=== PATIENT | male | born 1935 | race Caucasian/White ===

== ENCOUNTER → 2017-02-05 | Outpatient (REF) | payer MEDICARE ==
[2017-02-05 11:58] LABS: MEAN CORPUSCULAR HGB CONC 33.5 g/dl (32.0-36.5); MEAN CORPUSCULAR VOLUME 98.3 fl (80.0-96.0); RED CELL DISTRIBUTION WIDTH 14.4 % (11.5-14.5); WHITE BLOOD COUNT 5.9 K/mm3 (4.0-10.0)
[2017-02-05 12:39] LABS: ALBUMIN 3.6 GM/DL (3.2-5.2); ALBUMIN/GLOBULIN RATIO 1.38 (1.00-1.93); BILIRUBIN,TOTAL 0.6 MG/DL (0.2-1.0); CALCIUM LEVEL 8.8 MG/DL (8.8-10.2); CREATININE FOR GFR 1.23 MG/DL (0.70-1.30); GLOMERULAR FILTRATION RATE 59.8 (>35); POTASSIUM SERUM 4.3 MEQ/L (3.5-5.1); TOTAL PROTEIN 6.2 GM/DL (6.4-8.2)
== END ==
LOC: M SFHCCLAY 08:00
PROVIDERS: ATTEND Family Medicine
DX: I10 Essential (primary) hypertension (principal); Z95.5 Presence of coronary angioplasty implant and graft; I25.10 Atherosclerotic heart disease of native coronary artery without angina pectoris; E78.00 Pure hypercholesterolemia, unspecified

== ENCOUNTER → 2017-03-04 | Outpatient (CLI) | payer MEDICARE ==
--- NOTE | 2017-03-04 16:17 | REP ---
Right hip: Two views. History: Right hip pain. Findings: AP and frog-leg views of the right hip demonstrate osteoarthritic spurring and the superior joint space narrowing of the right hip articulation. There is also some tendon insertion site spurring on the greater trochanter. No erosive changes seen. Bones joints and soft tissues are otherwise radiographically unremarkable. Impression: Mild to moderate right hip osteoarthritis. No acute bony abnormality.
== END ==
LOC: M CLY 14:43
PROVIDERS: ATTEND Family Medicine
DX: M16.11 Unilateral primary osteoarthritis, right hip (principal)
CPT/HCPCS: 73502; G0463

== ENCOUNTER → 2018-02-08 | Outpatient (REF) | payer MEDICARE ==
[2018-02-08 11:23] LABS: HEMATOCRIT 42.4 % (42.0-52.0); HEMOGLOBIN 14.4 g/dl (13.5-17.5); MEAN CORPUSCULAR HEMOGLOBIN 32.6 pg (27.0-33.0); MEAN CORPUSCULAR VOLUME 95.9 fl (80.0-96.0); PLATELET COUNT, AUTOMATED 243 10^3/uL (150-450); RED BLOOD COUNT 4.42 10^6/uL (4.30-6.10); RED CELL DISTRIBUTION WIDTH 14.4 % (11.5-14.5); WHITE BLOOD COUNT 7.6 10^3/uL (4.0-10.0)
[2018-02-08 11:56] LABS: VITAMIN B12 LEVEL 251 PG/ML (247-911)
[2018-02-08 12:12] LABS: ALBUMIN 3.8 GM/DL (3.2-5.2); ALBUMIN/GLOBULIN RATIO 1.46 (1.00-1.93); ALKALINE PHOSPHATASE 68 U/L (45-117); ALT/SGPT 27 U/L (12-78); ANION GAP 5 MEQ/L (8-16); AST/SGOT 17 U/L (7-37); BILIRUBIN,TOTAL 0.6 MG/DL (0.2-1.0); BLOOD UREA NITROGEN 20 MG/DL (7-18); CALCIUM LEVEL 8.6 MG/DL (8.8-10.2); CARBON DIOXIDE LEVEL 28 MEQ/L (21-32); CHLORIDE LEVEL 111 MEQ/L (98-107); CHOLESTEROL LEVEL 124 MG/DL (<200); CHOLESTEROL RISK RATIO 2.339 (<5); CREATININE FOR GFR 1.29 MG/DL (0.70-1.30); GLOMERULAR FILTRATION RATE 56.5 (>35); GLUCOSE, FASTING 102 MG/DL (70-100); HDL CHOLESTEROL 53 MG/DL (>40); IRON (FE) 90 UG/DL (65-175); LDL CHOLESTEROL 58.2 MG/DL (<100); NON-HDL-C 71 MG/DL; POTASSIUM SERUM 4.8 MEQ/L (3.5-5.1); SODIUM LEVEL 144 MEQ/L (136-145); TOTAL PROTEIN 6.4 GM/DL (6.4-8.2); TRIGLYCERIDES LEVEL 64 MG/DL (<150)
== END ==
LOC: M SFHCCLAY 08:42
DX: D64.9 Anemia, unspecified (principal); I10 Essential (primary) hypertension; Z95.5 Presence of coronary angioplasty implant and graft; M15.9 Polyosteoarthritis, unspecified
CPT/HCPCS: 82746

== ENCOUNTER → 2018-06-02 | Outpatient (REF) | payer MEDICARE | LOC: M SFHCCLAY 08:27 | DX: I10 Essential (primary) hypertension (principal); Z53.8 Procedure and treatment not carried out for other reasons ==

== ENCOUNTER → 2019-01-11 | Outpatient (REF) | payer MEDICARE ==
[~2019-01-11] MED LIST: AMLO2.5T3 PO; ASPI81TA26 PO; Acetaminophen Tab PO; PRAV40TA2 PO; RANI150T PO; VITA1TAB23 PO
[2019-01-11 16:55] LABS: HEMATOCRIT 43.7 % (42.0-52.0); HEMOGLOBIN 14.3 g/dl (13.5-17.5); MEAN CORPUSCULAR HEMOGLOBIN 32.1 pg (27.0-33.0); MEAN CORPUSCULAR HGB CONC 32.7 g/dl (32.0-36.5); MEAN CORPUSCULAR VOLUME 98.2 fl (80.0-96.0); PLATELET COUNT, AUTOMATED 245 10^3/uL (150-450); RED BLOOD COUNT 4.45 10^6/uL (4.30-6.10); WHITE BLOOD COUNT 6.7 10^3/uL (4.0-10.0)
[2019-01-11 17:03] LABS: ALT/SGPT 28 U/L (12-78); BILIRUBIN,TOTAL 0.5 MG/DL (0.2-1.0); BLOOD UREA NITROGEN 18 MG/DL (7-18); CALCIUM LEVEL 9.1 MG/DL (8.8-10.2); CARBON DIOXIDE LEVEL 29 MEQ/L (21-32); CHLORIDE LEVEL 109 MEQ/L (98-107); CREATININE FOR GFR 1.17 MG/DL (0.70-1.30); GLOMERULAR FILTRATION RATE > 60.0 (>35); GLUCOSE, FASTING 86 MG/DL (70-100); POTASSIUM SERUM 4.8 MEQ/L (3.5-5.1); SODIUM LEVEL 142 MEQ/L (136-145); TOTAL PROTEIN 6.5 GM/DL (6.4-8.2); VITAMIN B12 LEVEL 320 PG/ML (247-911)
== END ==
LOC: M SFHCCLAY 09:14
PROVIDERS: ATTEND Family Medicine
DX: Z00.00 Encounter for general adult medical examination without abnormal findings (principal); R41.3 Other amnesia; I25.10 Atherosclerotic heart disease of native coronary artery without angina pectoris

== ENCOUNTER → 2019-08-09 | Outpatient (REF) | payer MEDICARE ==
[2019-08-09 12:28] LABS: ALBUMIN 3.7 GM/DL (3.2-5.2); BILIRUBIN,DIRECT 0.2 MG/DL (0.0-0.2); BILIRUBIN,TOTAL 0.6 MG/DL (0.2-1.0); CALCIUM LEVEL 9.2 MG/DL (8.8-10.2); CREATININE FOR GFR 1.4 MG/DL (0.70-1.30); GLOMERULAR FILTRATION RATE 51.3 (>35); POTASSIUM SERUM 4.3 MEQ/L (3.5-5.1); TOTAL PROTEIN 6.9 GM/DL (6.4-8.2)
== END ==
LOC: M LABDRAWC 11:40
PROVIDERS: ATTEND Physician Assistant
DX: E78.00 Pure hypercholesterolemia, unspecified (principal); I10 Essential (primary) hypertension

== ENCOUNTER → 2019-10-13 | Outpatient (REF) | payer MEDICARE ==
[2019-10-13 12:34] LABS: APPEARANCE, URINE CLEAR (CLEAR); BACTERIA, URINE AUTO NEGATIVE (NEGATIVE); BILIRUBIN, URINE AUTO NEGATIVE (NEGATIVE); BLOOD, URINE BLOOD NEGATIVE (NEGATIVE); COLOR, URINE YELLOW (YELLOW); GLUCOSE, URINE (UA) AUTO NEGATIVE (NEGATIVE); HEMATOCRIT 44.2 % (42.0-52.0); HEMOGLOBIN 14.6 g/dl (13.5-17.5); KETONE, URINE AUTO NEGATIVE (NEGATIVE); LEUKOCYTE ESTERASE, URINE AUTO NEGATIVE (NEGATIVE); MEAN CORPUSCULAR HEMOGLOBIN 32.2 pg (27.0-33.0); MEAN CORPUSCULAR VOLUME 97.6 fl (80.0-96.0); NITRITE, URINE AUTO NEGATIVE (NEGATIVE); PLATELET COUNT, AUTOMATED 235 10^3/uL (150-450); PROTEIN, URINE AUTO NEGATIVE (NEGATIVE); RBC, URINE AUTO 1 /HPF (0-3); RED BLOOD COUNT 4.53 10^6/uL (4.30-6.10); SPECIFIC GRAVITY URINE AUTO 1.017 (1.002-1.035); SQUAMOUS EPITHELIAL CELL UR AU 0 /HPF (0-6); UROBILINOGEN, URINE AUTO 0.2 mg/dL (0.0-2.0); WBC, URINE AUTO 0 /HPF (0-3); WHITE BLOOD COUNT 7.4 10^3/uL (4.0-10.0)
[2019-10-13 12:52] LABS: ALBUMIN 3.8 GM/DL (3.2-5.2); ALT/SGPT 27 U/L (12-78); BILIRUBIN,TOTAL 0.7 MG/DL (0.2-1.0); BLOOD UREA NITROGEN 21 MG/DL (7-18); CALCIUM LEVEL 8.8 MG/DL (8.8-10.2); CARBON DIOXIDE LEVEL 28 MEQ/L (21-32); CHLORIDE LEVEL 107 MEQ/L (98-107); CHOLESTEROL LEVEL 134 MG/DL (<200); CREATININE FOR GFR 1.22 MG/DL (0.70-1.30); GLOMERULAR FILTRATION RATE > 60.0 (>35); GLUCOSE, FASTING 85 MG/DL (70-100); HDL CHOLESTEROL 50 MG/DL (>40); LDL CHOLESTEROL 67 MG/DL (<100); NON-HDL-C 84 MG/DL; POTASSIUM SERUM 4.8 MEQ/L (3.5-5.1); SODIUM LEVEL 142 MEQ/L (136-145); TOTAL PROTEIN 6.5 GM/DL (6.4-8.2); TRIGLYCERIDES LEVEL 86 MG/DL (<150)
== END ==
LOC: M SFHCCLAY 08:35
PROVIDERS: ATTEND Family Medicine
DX: Z12.5 Encounter for screening for malignant neoplasm of prostate (principal); I25.10 Atherosclerotic heart disease of native coronary artery without angina pectoris; Z95.5 Presence of coronary angioplasty implant and graft; R10.32 Left lower quadrant pain; R35.1 Nocturia
CPT/HCPCS: 80053; 80061; 81001; 85027; G0103

== ENCOUNTER → 2019-10-25 | Outpatient (CLI) | payer MEDICARE ==
[~2019-10-25] MED LIST changes: +GASTROGRAFIN SOLUTION 30ML (Q9963) As Ordered ONE; +ISOVUE-370 76% 100ML VIAL (Q9967) As Ordered ONE
--- NOTE | 2019-10-25 15:34 | REP ---
Clinical: Left lower quadrant pain. Technique: Axial contrast enhanced images from the lung bases to the pubic symphysis using oral (per protocol) and 100 ml Isovue 370 intravenous contrast material with coronal and sagittal re-formations. Delayed images of the abdomen obtained. Findings: Lung bases are clear. Liver, spleen, pancreas, gallbladder, bilateral adrenal glands and kidneys are essentially normal. Symmetric cortical age-related atrophic renal changes and 2 cm simple right renal cyst identified. The enteric system is without obstruction or acute inflammatory process. Normal terminal ileum and appendix identified in the right lower quadrant. Scattered sigmoid diverticula noted without acute diverticulitis. Pelvis demonstrates normal bladder. The prostate gland is heterogeneous and enlarged measuring approximately 4.3 cm transverse diameter. No ascites. No free air. No adenopathy. Abdominal aorta without aneurysm or dissection. Musculoskeletal structures demonstrate degenerative changes without acute osseous abnormality. Impression: 1. Age-related renal changes and 2 cm simple right renal cyst. 2. Scattered sigmoid diverticula without acute diverticulitis. 3. Prostatomegaly. 4. No ascites, focal inflammatory stranding, or adenopathy. Electronically Signed by Jonathan Hagan MD 10/25/2019 03:25 P
== END ==
LOC: M RAD 13:21
PROVIDERS: ATTEND Family Medicine
DX: R10.32 Left lower quadrant pain (principal)
CPT/HCPCS: 74177; Q9963; Q9967

== ENCOUNTER → 2019-11-02 | Outpatient (REF) | payer MEDICARE ==
[~2019-11-02] MED LIST changes: -GASTROGRAFIN SOLUTION 30ML (Q9963) As Ordered ONE; -ISOVUE-370 76% 100ML VIAL (Q9967) As Ordered ONE
== END ==
LOC: M SMT 12:45
PROVIDERS: ATTEND Nurse Practitioner Family
DX: N39.0 Urinary tract infection, site not specified (principal)
CPT/HCPCS: 51798; 87086; G0463

== ENCOUNTER 2019-11-16 08:34 | Inpatient (IN) | payer MEDICARE ==
[2019-11-16] VITALS (15 sets, daily range): BP systolic 143–225; BP diastolic 71–162
[~2019-11-16] VITALS: Ht 172.7 cm; Wt 100.0 kg
[2019-11-16] MEDS ORDERED: FAMO1TAB11 PO (08:45)
[2019-11-16] MEDS ORDERED: NITR0.4S14 SL (08:45)
[2019-11-16 09:15] LABS: BASO # 0.1 10^3/uL (0.0-0.2); BASO % 0.7 % (0.0-1.0); EOS # 0.2 10^3/uL (0.0-0.5); EOS % 3.3 % (0.0-3.0); HEMOGLOBIN 15.3 g/dl (13.5-17.5); LYMPH # 1.6 10^3/uL (1.5-5.0); LYMPH % 21.8 % (24.0-44.0); MEAN CORPUSCULAR HEMOGLOBIN 32.7 pg (27.0-33.0); MEAN CORPUSCULAR VOLUME 96.2 fl (80.0-96.0); MONO # 0.6 10^3/uL (0.0-0.8); MONO % 8.5 % (0.0-5.0); NEUTROPHILS # 4.8 10^3/uL (1.5-8.5); NEUTROPHILS % 65.3 % (36.0-66.0); PLATELET COUNT, AUTOMATED 243 10^3/uL (150-450); RED BLOOD COUNT 4.68 10^6/uL (4.30-6.10); WHITE BLOOD COUNT 7.3 10^3/uL (4.0-10.0)
[2019-11-16 09:39] LABS: INR 1.04; PROTHROMBIN TIME 13.3 SECONDS (11.8-14.0)
[2019-11-16 09:40] LABS: BLOOD UREA NITROGEN 25 MG/DL (7-18); CALCIUM LEVEL 8.9 MG/DL (8.8-10.2); CARBON DIOXIDE LEVEL 29 MEQ/L (21-32); CHLORIDE LEVEL 109 MEQ/L (98-107); CPK CREATINE PHOSPHOKINASE 74 U/L (39-308); CREATININE FOR GFR 1.34 MG/DL (0.70-1.30); GLOMERULAR FILTRATION RATE 53.8 (>35); GLUCOSE, FASTING 101 MG/DL (70-100); PARTIAL THROMBOPLASTIN TIME 28.7 SECONDS (25.0-38.4); POTASSIUM SERUM 4.5 MEQ/L (3.5-5.1); SODIUM LEVEL 142 MEQ/L (136-145); TROPONIN I < 0.02 NG/ML (< 0.10)
--- NOTE | 2019-11-16 09:45 | REP ---
CT brain without contrast: History: CVA. No comparison brain CT. Findings: Digital preliminary sexologist radiograph is unremarkable. Bone window settings are intact. The visualized paranasal sinuses are clear. There is some vascular calcification in the internal carotid arteries at the skull base. Soft tissue window settings demonstrate no evidence of intracranial hemorrhage. There is mild generalized volume loss. There is no evidence of acute infarction, mass, extra-axial fluid collection or midline shift. Impression: Vascular calcification and mild generalized atrophy. No acute intracranial abnormality. Electronically Signed by Solomon Roberts MD 11/16/2019 04:45 P
[2019-11-16] MEDS ORDERED: ASPIRIN 81 MG CHEW TABLET PO ONE (11:00)
[2019-11-16] MEDS ORDERED: ACET-683 PO (11:16)
[2019-11-16] MEDS ORDERED: ACETAMINOPHEN 500 MG TAB PO PRN (11:45)
--- NOTE | 2019-11-16 11:54 | HPEPDOC ---
[facility] Medical History & Physical Date of Admission Nov 16, 2019 Date of Service: Nov 16, 2019 Attending Physician: YOLI MARIO MD History and Physical CHIEF COMPLAINT: Right arm weakness HISTORY OF PRESENT ILLNESS: 84-year-old male with past medical history of coronary artery disease status post stent placement, permanent pacemaker placement, hypertension, chronic kidney disease presents from home with transient right upper extremity weakness. Patient reports waking up without any issues, noticed right arm weakness with numbness and tingling lasting for less than 1 minute while he was in the shower. His symptoms resolved and have not recurred since, currently resting comfortable in bed without any issues. He has never had similar symptoms in the past, denies history of TIA/stroke previously. He denies any headache, vision changes, dizziness, shortness of breath, chest pain, nausea, vomiting, abdominal pain or diarrhea. 10 point review of system is negative except for above PAST MEDICAL HISTORY: 1. Coronary artery disease. 2. Hypertension. 3. Chronic kidney disease. PAST SURGICAL HISTORY: 1. Permanent pacemaker placement. 2. Right ankle surgery. SOCIAL HISTORY: Previous smoker, quit in 1979, smoked 1 pack per day for over 30 years. Social alcohol use. Denies drug use FAMILY HISTORY: Negative for heart disease ALLERGIES: Please see below. HOME MEDICATIONS: Please see below. PHYSICAL EXAMINATION: VITAL SIGNS: Please see below. GENERAL: No distress HEENT: Normocephalic, atraumatic, moist mucous membranes NECK: Supple CARDIOVASCULAR EXAMINATION: S1, S2, no murmurs RESPIRATORY EXAMINATION: Clear to auscultation, no wheezing ABDOMINAL EXAMINATION: Soft, nontender, nondistended, positive bowel sounds EXTREMITIES: Range of motion intact SKIN: No rash NEUROLOGICAL EXAMINATION: Alert and oriented 3, no focal deficits PSYCHIATRIC EXAMINATION: Calm and cooperative LABORATORY DATA: See below. IMAGING: CT head negative for acute pathology MICROBIOLOGY: Please see below. ASSESSMENT: 84-year-old male with multiple medical comorbidities be committed for possible TIA. PLAN: 1. Possible TIA. Status post aspirin 325 mg in the ED, CT head negative for acute pathology, unable to have MRI, given history of presentation neurological insult is unlikely, admitted for observation, telemetry monitoring, will avoid an extensive workup at this time. Patient has been undergoing a lot of stress because of his son who is dying from malignancy, current presentation could be a manifestation of that. Plan for discharge tomorrow if no changes overnight. 2. Coronary artery disease. Status post an placement, continue optimal medical management with aspirin, statin. 3. Hypertension. Continue Norvasc 4. Chronic kidney disease. Creatinine at baseline, will monitor. DVT prophylaxis: Heparin subcutaneous GI prophylaxis: Not needed Vital Signs Vital Signs Date Time Temp Pulse Resp B/P (MAP) Pulse Ox O2 Delivery O2 Flow Rate FiO2 11/16/19 11:30 58 18 143/71 (95) 100 Room Air 11/16/19 08:46 96.1 Laboratory Data Labs 24H Laboratory Tests 2 11/16/19 09:03: Immature Granulocyte % (Auto) 0.4, Neutrophils (%) (Auto) 65.3, Lymphocytes (%) (Auto) 21.8L, Monocytes (%) (Auto) 8.5H, Eosinophils (%) (Auto) 3.3H, Basophils (%) (Auto) 0.7, Neutrophils # (Auto) 4.8, Lymphocytes # (Auto) 1.6, Monocytes # (Auto) 0.6, Eosinophils # (Auto) 0.2, Basophils # (Auto) 0.1, Nucleated Red Blood Cells % (auto) 0.0, Prothrombin Time 13.3, Prothromb Time International Ratio 1.04, Activated Partial Thromboplast Time 28.7, Anion Gap 4L, Glomerular Filtration Rate 53.8, Calcium Level 8.9, Total Creatine Kinase 74, Creatine Kinase MB 2.0, Creatine Kinase MB Relative Index 2.70, Troponin I < 0.02 CBC/BMP Laboratory Tests 11/16/19 09:03 Home Medications Scheduled Amlodipine Besylate (Amlodipine Besylate) 2.5 Mg Tab, 2.5 MG PO DAILY Aspirin (Aspirin EC) 81 Mg Tab, 81 MG PO DAILY Famotidine (Famotidine) 20 Mg Tablet, 20 MG PO DAILY Pravastatin Sodium (Pravastatin Sodium) 40 Mg Tab, 40 MG PO DAILY Scheduled PRN Acetaminophen (Acetaminophen) 500 Mg Tablet, 250 MG PO Q4H PRN for PAIN Nitroglycerin (Nitroglycerin) 0.4 Mg Tab.subl, 0.4 MG SL NITRO PRN for CHEST PAIN Allergies Coded Allergies: Penicillins (Verified Allergy, Severe, Swelling, 11/16/19) A-FIB/CHADSVASC A-FIB History Current/History of A-Fib/PAF?: No YOLI MARIO MD Nov 16, 2019 11:54
[2019-11-16] MEDS: FAMOTIDINE 20 MG TAB PO SCH (13:18)
[2019-11-16] MEDS: ASPIRIN 81 MG ENTERIC TAB PO SCH (14:41)
--- NOTE | 2019-11-16 20:55 | ECGEPIP ---
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
[2019-11-16] MEDS ORDERED: PRAVASTATIN 20 MG TAB PO SCH (21:00)
[2019-11-16] MEDS: HEPARIN SOD (PORCINE) 5000UNITS/ML VIAL (J1644 PER 1000UNITS) SC SCH (21:17)
[2019-11-17 04:01] VITALS: O2SAT 95
[2019-11-17 06:00] VITALS: BP 128/65
[2019-11-17 06:04] LABS: HEMATOCRIT 40.2 % (42.0-52.0); HEMOGLOBIN 13.6 g/dl (13.5-17.5); MEAN CORPUSCULAR HEMOGLOBIN 32.4 pg (27.0-33.0); MEAN CORPUSCULAR HGB CONC 33.8 g/dl (32.0-36.5); MEAN CORPUSCULAR VOLUME 95.7 fl (80.0-96.0); PLATELET COUNT, AUTOMATED 221 10^3/uL (150-450); WHITE BLOOD COUNT 7.6 10^3/uL (4.0-10.0)
[2019-11-17 06:30] LABS: ALBUMIN 3.3 GM/DL (3.2-5.2); BILIRUBIN,TOTAL 0.6 MG/DL (0.2-1.0); CALCIUM LEVEL 8.2 MG/DL (8.8-10.2); CREATININE FOR GFR 1.25 MG/DL (0.70-1.30); GLOMERULAR FILTRATION RATE 58.3 (>35); MAGNESIUM LEVEL 2.3 MG/DL (1.8-2.4); POTASSIUM SERUM 4.5 MEQ/L (3.5-5.1); TOTAL PROTEIN 5.8 GM/DL (6.4-8.2)
[2019-11-17] MEDS: HEPARIN SOD (PORCINE) 5000UNITS/ML VIAL (J1644 PER 1000UNITS) SC SCH (08:58)
[2019-11-17] MEDS: FAMOTIDINE 20 MG TAB PO SCH (08:58)
[2019-11-17] MEDS: ASPIRIN 81 MG ENTERIC TAB PO SCH (08:58)
[2019-11-17 08:59] VITALS: BP 150/80
--- NOTE | 2019-12-12 14:58 | DSES ---
DATE OF ADMISSION: 11/17/2019 DATE OF DISCHARGE: 11/17/2019 PRIMARY CARE PHYSICIAN: Dr. Rishabh Smalls ATTENDING TODAY: Erick Anglin MD HISTORY: This is an 84-year-old male patient with a medical history of coronary artery disease (CAD), hypertension, chronic kidney disease, who was at home and presented with right upper extremity transient weakness. Reports waking up without any issues, right arm weakness, numbness and tingling, lasted less than 1 minute while he was in the shower. His symptoms have resolved and not recurred. He was evaluated in the emergency room, admitted to the hospital overnight for symptoms concerning for TIA. CT of the head was obtained in the emergency room without any further findings. The patient was unable to undergo MRI secondary to pacemaker. Patient was admitted to the hospital on 11/15 and was discharged on 11/17/2019. As his symptoms had not recurred he was felt to be safe to return home. There were no changes to his medications made during his hospitalization. DISCHARGE MEDICATIONS: : - acetaminophen 500 mg every 4 hours as needed for pain - amlodipine 2.5 mg daily - aspirin 81 mg daily - famotidine 20 mg daily DISCHARGE DIAGNOSES: 1. Transient ischemic attack (TIA). 2. Coronary artery disease (CAD). 3. Hypertension. DISCHARGE PLAN: Followup with his primary care provider in one week. Activity should be as tolerated. Diet is no added salt.
== END 2019-11-17 12:26 | disposition home or self-care (01) | DRG 69 ==
LOC: EDBD 08:34 → M ED 08:34 → M MSPAV 08:35 → INTOOBSV 08:35 → UNDOADMIN 11:44 → M ED INP 11:44 → M MSPAV 16:24 → M ED INP 16:24 → OBSVTOIN 11-17 10:05
PROVIDERS: ADMIT Internal Medicine; ATTEND Family Medicine
DX: G45.9 Transient cerebral ischemic attack, unspecified (principal); I25.10 Atherosclerotic heart disease of native coronary artery without angina pectoris; I12.9 Hypertensive chronic kidney disease with stage 1 through stage 4 chronic kidney disease, or unspecified chronic kidney disease; N18.9 Chronic kidney disease, unspecified; Z95.2 Presence of prosthetic heart valve; Z95.0 Presence of cardiac pacemaker; Z87.891 Personal history of nicotine dependence; Z79.82 Long term (current) use of aspirin; Z79.899 Other long term (current) drug therapy

== ENCOUNTER → 2020-01-05 | Outpatient (REF) | payer MEDICARE ==
[~2020-01-05] MED LIST changes: +ACET-683 PO; +FAMO1TAB11 PO; +NITR0.4S14 SL
[2020-01-06 14:12] LABS: PSA TOTAL 19.2 ng/mL (0.0-4.0)
== END ==
LOC: M SFHCCLAY 08:44
PROVIDERS: ATTEND Nurse Practitioner Family
DX: R97.20 Elevated prostate specific antigen [PSA] (principal)

== ENCOUNTER → 2020-01-17 | Outpatient (CLI) | payer MEDICARE ==
--- NOTE | 2020-01-17 13:11 | REPPI ---
Prostate sonography: History: Elevated PSA level. Sonographic findings: Trans rectal prostate sonography demonstrates unremarkable seminal vesicles. Prostate gland is heterogeneously enlarged with calcifications and cystic changes noted. Glandular dimensions are measured at 4.0 x 3.0 x 4.8 cm with a calculated glandular volume of 30.0 ml. A 0.5 cm nodule is seen in the posterior mid gland of the prostate. Transrectal sonographic guidance is provided to Dr. Ellison who performed trans rectal ultrasound guided needle biopsy procedure . Electronically Signed by Solomon Roberts MD 01/17/2020 01:03 P
== END ==
LOC: M SMT PRO 09:57
PROVIDERS: ATTEND Urology
DX: C61 Malignant neoplasm of prostate (principal)
CPT/HCPCS: 55700; 76872; 76942; G0416

== ENCOUNTER → 2020-01-27 | Outpatient (REF) | payer MEDICARE ==
[2020-01-27 12:45] LABS: CALCIUM LEVEL 9.1 MG/DL (8.8-10.2); CREATININE FOR GFR 1.4 MG/DL (0.70-1.30); GLOMERULAR FILTRATION RATE 51.2 (>35); POTASSIUM SERUM 4.3 MEQ/L (3.5-5.1)
== END ==
LOC: M LABSMT 08:26
PROVIDERS: ATTEND Urology
DX: C61 Malignant neoplasm of prostate (principal)

== ENCOUNTER → 2020-02-10 | Outpatient (CLI) | payer MEDICARE ==
[~2020-02-10] MED LIST changes: +ISOVUE-370 76% 100ML VIAL As Ordered ONE
--- NOTE | 2020-02-10 10:48 | REP ---
REASON FOR EXAM: History of carcinoma of the prostate gland. Only prior for comparison is 10/25/2019. COMPARISON: 100 mL Isovue-370. There is no change in the lung bases. The liver, gallbladder, spleen, pancreas, adrenal glands, and kidneys are stable. The abdominal aorta and para-aortic regions are unchanged. The bowel loops and their mesenteries are unchanged. There is no free fluid or free air. No intra-abdominal mass or adenopathy has developed. CT PELVIS: There is no change in appearance of the prostate gland. No free fluid or free air has developed. There is no change in the bowel loops or their mesenteries. No pelvic sidewall or inguinal adenopathy has developed. Once again, there is increased adipose tissue seen in the left inguinal canal compared to the right but minimal. Bone window technique throughout the examination shows no significant change in appearance of the osseous structures. IMPRESSION: No significant change. Electronically Signed by Leandro Kirkland DO 02/10/2020 11:16 A
--- NOTE | 2020-02-10 17:25 | REP ---
REASON FOR EXAM: History of prostate carcinoma. There are no priors for comparison. After the intravenous administration of 21.7 mCi of technetium 99m MDP, a total body bone scan was obtained. There is a degenerative-type uptake pattern of increased radionuclide accumulation seen in the shoulders, sternoclavicular joints, sacroiliac joints, hips, knees, and feet. Focal areas of increased radionuclide accumulation are seen at the ends anteriorly involving multiple ribs. There is no abnormal linear rib uptake. There is a subtle degree of increased radionuclide accumulation seen in the thoracic spine at the T7 and 8 levels just to the right of the midline possibly in the rib articulations. IMPRESSION: Degenerative-type uptake pattern seen, as described above. There is no compelling evidence of metastatic disease. Electronically Signed by Leandro Kirkland DO 02/13/2020 10:50 A
== END ==
LOC: M RAD 09:21
PROVIDERS: ATTEND Urology
DX: C61 Malignant neoplasm of prostate (principal)
CPT/HCPCS: 74177; 78306; A9503; Q9967

== ENCOUNTER → 2020-03-12 | Outpatient (REF) | payer MEDICARE ==
[~2020-03-12] MED LIST changes: +FLOM0.4C39 PO; -ISOVUE-370 76% 100ML VIAL As Ordered ONE; +MINO100C4; -VITA1TAB23 PO; +VITA250T26 PO
== END ==
LOC: M SFHCCLAY 07:58
PROVIDERS: ATTEND Urology
DX: C61 Malignant neoplasm of prostate (principal)

== ENCOUNTER 2020-03-19 12:32 | Emergency (ER) | payer MEDICARE ==
[~2020-03-19] VITALS: Ht 170.2 cm; Wt 103.6 kg
[~2020-03-19 12:32] MED LIST changes: -FLOM0.4C39 PO; -MINO100C4; +VITA1TAB23 PO; -VITA250T26 PO
[2020-03-19] MEDS ORDERED: MINO100C4 (12:59)
[2020-03-19 13:33] LABS: BASO # 0.1 10^3/uL (0.0-0.2); BASO % 0.6 % (0.0-1.0); EOS # 0.5 10^3/uL (0.0-0.5); EOS % 5.8 % (0.0-3.0); HEMATOCRIT 43.8 % (42.0-52.0); HEMOGLOBIN 14.5 g/dl (13.5-17.5); LYMPH # 1.5 10^3/uL (1.5-5.0); LYMPH % 17.2 % (24.0-44.0); MEAN CORPUSCULAR HEMOGLOBIN 32.2 pg (27.0-33.0); MEAN CORPUSCULAR HGB CONC 33.1 g/dl (32.0-36.5); MEAN CORPUSCULAR VOLUME 97.3 fl (80.0-96.0); MONO % 10.9 % (0.0-5.0); NEUTROPHILS # 5.8 10^3/uL (1.5-8.5); NEUTROPHILS % 65.1 % (36.0-66.0); PLATELET COUNT, AUTOMATED 202 10^3/uL (150-450); WHITE BLOOD COUNT 8.9 10^3/uL (4.0-10.0)
[2020-03-19] MEDS ORDERED: ASPIRIN 81 MG CHEW TABLET PO ONE (13:45)
[2020-03-19 14:02] LABS: INR 0.92; PARTIAL THROMBOPLASTIN TIME 27.9 SECONDS (25.0-38.4); PROTHROMBIN TIME 12.1 SECONDS (11.8-14.0)
[2020-03-19 14:05] LABS: D-DIMER QUANT 431.38 ng/ml (<500)
[2020-03-19 14:06] LABS: ALBUMIN 3.8 GM/DL (3.2-5.2); ALT/SGPT 43 U/L (12-78); BILIRUBIN,DIRECT 0.1 MG/DL (0.0-0.2); BILIRUBIN,TOTAL 0.4 MG/DL (0.2-1.0); BLOOD UREA NITROGEN 22 MG/DL (7-18); CALCIUM LEVEL 8.6 MG/DL (8.8-10.2); CARBON DIOXIDE LEVEL 28 MEQ/L (21-32); CHLORIDE LEVEL 110 MEQ/L (98-107); CK-MB VALUE MASS 1.6 NG/ML (<3.6); CPK CREATINE PHOSPHOKINASE 108 U/L (39-308); CREATININE FOR GFR 1.24 MG/DL (0.70-1.30); GLOMERULAR FILTRATION RATE 58.8 (>35); GLUCOSE, FASTING 76 MG/DL (70-100); LIPASE 127 U/L (73-393); MB/CK RELATIVE INDEX 1.48 (< OR =4); POTASSIUM SERUM 4.5 MEQ/L (3.5-5.1); SODIUM LEVEL 144 MEQ/L (136-145); TOTAL PROTEIN 6.6 GM/DL (6.4-8.2); TROPONIN I < 0.02 NG/ML (< 0.10)
[2020-03-19 15:13] VITALS: O2SAT 95
[2020-03-19] MEDS ORDERED: ISOVUE-370 76% 100ML VIAL As Ordered ONE (15:19)
[2020-03-19 16:31] VITALS: BP 142/68
--- NOTE | 2020-03-19 16:36 | ECGEPIP ---
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
--- NOTE | 2020-03-20 00:22 | REP ---
CHEST, SINGLE VIEW: Single view of the chest is performed. COMPARISON: 03/18/2018 There is no acute infiltrate or pulmonary edema. Heart is upper limits of normal in size. There is some tortuosity of the thoracic aorta. Mediastinal silhouette is unchanged. Left dual-lead pacemaker is noted. IMPRESSION: No acute pulmonary disease. Electronically Signed by Adam Perales MD 03/20/2020 11:26 P
--- NOTE | 2020-03-20 03:23 | REP ---
REASON: Dyspnea. There are no priors for comparison. CONTRAST: 100 mL Isovue-370. There is excellent visualization of the pulmonary arterial vasculature. No focal filling defects are present that would be considered consistent with acute pulmonary emboli. There is no mediastinal or hilar adenopathy. There are no pleural or pericardial effusions. The imaged upper abdomen and imaged osseous structures are within normal limits. Evaluation of the lung ndiaye shows significant respiratory motion artifact, which could obscure a significant nodule. No gross abnormality is identified. IMPRESSION: No evidence of a pulmonary embolus. No evidence of acute intrathoracic disease. Findings and limitations as described above. Electronically Signed by Leandro Kirkland DO 03/20/2020 11:35 A
== END 2020-03-19 16:47 | disposition home or self-care (01) ==
LOC: M ED 12:32
DX: R07.9 Chest pain, unspecified (principal); R94.31 Abnormal electrocardiogram [ECG] [EKG]; Z95.0 Presence of cardiac pacemaker; I25.10 Atherosclerotic heart disease of native coronary artery without angina pectoris; I12.9 Hypertensive chronic kidney disease with stage 1 through stage 4 chronic kidney disease, or unspecified chronic kidney disease; Z87.891 Personal history of nicotine dependence; Z79.82 Long term (current) use of aspirin; Z79.899 Other long term (current) drug therapy; Z88.0 Allergy status to penicillin
CPT/HCPCS: 71045; 71275; 80048; 80076; 82550; 82553; 83690; 84484; 85025; 85379; 85610; 85730; 87486; 87581; 87633; 87798; 93005; 93041; 94760; 99285; Q9967

== ENCOUNTER → 2020-04-10 | Outpatient (CLI) | payer MEDICARE ==
[~2020-04-10] MED LIST changes: +FLOM0.4C39 PO; +MINO100C4; -VITA1TAB23 PO; +VITA250T26 PO
== END ==
LOC: M ONCR 10:28
PROVIDERS: ATTEND General Practice
DX: C61 Malignant neoplasm of prostate (principal)

== ENCOUNTER → 2020-04-17 | Outpatient (CLI) | payer MEDICARE | LOC: M SMT PRO 11:30 | PROVIDERS: ATTEND Urology | DX: C61 Malignant neoplasm of prostate (principal) | CPT/HCPCS: 55876; 76872; A4648 ==

== ENCOUNTER → 2020-05-07 | Outpatient (RCR) | payer MEDICARE | LOC: M ONCR 04-25 09:13 | PROVIDERS: ATTEND General Practice | DX: C61 Malignant neoplasm of prostate (principal) ==

== ENCOUNTER → 2020-06-06 | Outpatient (RCR) | payer MEDICARE | LOC: M ONCR 05-08 09:35 | PROVIDERS: ATTEND General Practice | DX: C61 Malignant neoplasm of prostate (principal) ==

== ENCOUNTER 2020-06-15 09:42 | Outpatient (RCR) | payer MEDICARE | END 2020-07-07 | LOC: M ONCR 09:42 | PROVIDERS: ATTEND General Practice | DX: C61 Malignant neoplasm of prostate (principal) ==

== ENCOUNTER → 2020-10-16 | Outpatient (REF) | payer MEDICARE | LOC: M SFHCCLAY 10:21 | PROVIDERS: ATTEND Family Medicine | DX: C61 Malignant neoplasm of prostate (principal) ==

== ENCOUNTER → 2020-12-19 | Outpatient (CLI) | payer MEDICARE ==
[~2020-12-19] MED LIST changes: +LUPR45IN IM
--- NOTE | 2020-12-19 15:17 | RADONC ---
Radiation Oncology Hx/FUP Radiation Oncology Hx/FUP Date of Service: Dec 19, 2020 Pt Identifier Arash Dee is a 85 year old male seen for a followup visit today at the department of radiation oncology for a history of high risk prostate cancer [id number] [place] 5+4=9 PSA 19.2. He completed EBRT 70 Gy in 28 fractions 06/15/20. He continues ADT with Dr. Ellison. Diagnosis/Treatment History Oncologic History Followed for elevated PSA 01/17/20 TRUS biopsy Angie 5+4=9 8/12 cores+ overall PSA 10/13/19 16.4 01/05/20 19.2 03/12/20 3.65 (On ADT) 10/16/20 <0.01 12/19/[address] scan and bone scan negative He received 70 Gy in 28 fractions from 05/07/20-06/15/[address] were treated Interval History Jayant feels generally well. He notes weight gain on ADT as well as loss of muscle mass. He is trying to exercise and eat better to loose weight. He has nocturia 2-3 times and would like to resume flomax. He has some intermittent constipation, no diarrhea or BRBPR. Current Therapy ADT per Dr. Ellison from 03/2020 plan for ~ 2 years of treatment. 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 [id number] [place] 5+4=9 (8/12 cores+) PSA 19.2 Social History: Non-smoker Occasional drinker Allergies / Meds Allergies: Coded Allergies: Penicillins (Verified Allergy, Severe, Swelling, 11/16/19) Home Meds Active Scripts Tamsulosin HCl (Flomax) 0.4 Mg Capsule, 1 CAP PO QHS, #90 CAP 3 Refills Prov:JUNE RIVERS MD 12/19/20 Reported Medications Leuprolide Acetate (Lupron Depot) 45 Mg Syringekit, 45 MG IM [id number], INJ 12/19/20 Acetaminophen (Acetaminophen) 500 Mg Tablet, 1 TAB PO PRN PRN for PAIN, TAB 11/16/19 Nitroglycerin (Nitroglycerin) 0.4 Mg Tab.subl, 0.4 MG SL NITRO PRN for CHEST PAIN 11/16/19 Pravastatin Sodium (Pravastatin Sodium) 40 Mg Tab, 40 MG PO DAILY 03/15/18 Aspirin (Aspirin EC) 81 Mg Tab, 81 MG PO DAILY 03/15/18 Discontinued Reported Medications Minocycline HCl (Minocycline HCl) 100 Mg Capsule 03/19/20 Famotidine (Famotidine) 20 Mg Tablet, 20 MG PO DAILY 11/16/19 Amlodipine Besylate (Amlodipine Besylate) 2.5 Mg Tab, 2.5 MG PO DAILY, TAB 03/15/18 Review of Systems Review of Systems Constitutional: Reports: Fatigue; Denies: Weight Loss Eyes: Denies: Pain HEENT: Denies: Head Aches Pulmonary: Denies: Dyspnea Cardiovascular: Denies: Chest Pain Gastrointestinal: Reports: Constipation; Denies: Abdominal Pain, Hematochezia Genitourinary: Reports: Frequency; Denies: Dysuria, Retention Musculoskeletal: Denies: Back pain Neurological: Denies: Weakness, Numbness Psych: Reports: Mood Normal Physical Examination Vital Signs Wt 236 lbs T 96.8 P 63 RR 16 BP 131/65 O2 97% Pain 0 Fatigue 0 General Exam: Positive: Alert, Cooperative, No Acute Distress Eye Exam: Positive: PERRLA, EOMI ENT EXAM: Positive: Atraumatic Neck Exam: Positive: Supple Chest Exam: Positive: Clear to auscultation Heart Exam: Positive: Rate Normal, Regular Rhythm Abdomen Exam: Positive: Normal bowel sounds, Soft Extremity Exam: Negative: Edema Skin Exam: Positive: Nl turgor and temperature Neuro Exam: Positive: Normal Gait, Normal Speech, Cranial Nerves 3-12 NL Psych Exam: Positive: Mental status NL Diagnostic and Laboratory Diagnostic Review Radiologic images, relevant labs and pathology reports were personally reviewed and discussed with Mr. Dee. Assessment and Plan Impression Assessment Mr. 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 He completed EBRT 70 Gy in 28 fractions . He continues ADT with Dr. Ellison. He is doing well. PSA remains appropriately suppressed. He has the usual ADT side effect of weight gain and muscle loss. Overall though he is intent on continuing for now. I explained that an 18 month course of ADT may be appropriate based on current data versus the usual 24 month recommended duration. He has some increase in frequency, he liked flomax and would like to restart this medication. He is due for ADT in March and has follow up with Dr. Ellison for this, there fore I will see him in Winter 2020 with a PSA check. Performance Status ECOG 0 Plan Follow up in 7-8 months Mr. Dee was encouraged to call with questions or concerns in the interim period. Billing Statement Total time of [22] minutes was spent preparing for the visit [1], obtaining HPI [5], examining the patient [1], reviewing diagnostic tests [1], discussing management options [5], coordinating care [1], and writing this note [8]. JUNE RIVERS MD Dec 19, 2020 15:17
== END ==
LOC: M ONCR 13:52
PROVIDERS: ATTEND General Practice
DX: C61 Malignant neoplasm of prostate (principal)

== ENCOUNTER → 2021-03-20 | Outpatient (REF) | payer MEDICARE ==
[2021-03-20 16:45] LABS: HEMATOCRIT 37.9 % (42.0-52.0); HEMOGLOBIN 12.5 g/dl (13.5-17.5); MEAN CORPUSCULAR HEMOGLOBIN 32.4 pg (27.0-33.0); MEAN CORPUSCULAR VOLUME 98.2 fl (80.0-96.0); PLATELET COUNT, AUTOMATED 237 10^3/uL (150-450); RED BLOOD COUNT 3.86 10^6/uL (4.30-6.10); WHITE BLOOD COUNT 6.2 10^3/uL (4.0-10.0)
[2021-03-20 17:24] LABS: ALBUMIN 3.6 GM/DL (3.2-5.2); ALT/SGPT 33 U/L (12-78); BILIRUBIN,TOTAL 0.3 MG/DL (0.2-1.0); BLOOD UREA NITROGEN 24 MG/DL (7-18); CARBON DIOXIDE LEVEL 27 MEQ/L (21-32); CHLORIDE LEVEL 112 MEQ/L (98-107); CHOLESTEROL LEVEL 136 MG/DL (<200); CHOLESTEROL RISK RATIO 2.893 (<5); CPK CREATINE PHOSPHOKINASE 73 U/L (39-308); GLOMERULAR FILTRATION RATE > 60.0 (>35); GLUCOSE, FASTING 75 MG/DL (70-100); HDL CHOLESTEROL 47 MG/DL (>40); LDL CHOLESTEROL 60 MG/DL (<100); NON-HDL-C 89 MG/DL; POTASSIUM SERUM 4.7 MEQ/L (3.5-5.1); SODIUM LEVEL 143 MEQ/L (136-145); TOTAL PROTEIN 6.2 GM/DL (6.4-8.2); TRIGLYCERIDES LEVEL 147 MG/DL (<150)
[2021-03-21 09:22] LABS: IRON (FE) 87 UG/DL (65-175)
[2021-03-21 10:30] LABS: VITAMIN B12 LEVEL 302 PG/ML (247-911)
== END ==
LOC: M SFHCCLAY 13:56
PROVIDERS: ATTEND Family Medicine
DX: R53.82 Chronic fatigue, unspecified (principal); Z79.899 Other long term (current) drug therapy; I95.1 Orthostatic hypotension; I25.10 Atherosclerotic heart disease of native coronary artery without angina pectoris; I10 Essential (primary) hypertension
CPT/HCPCS: 80053; 80061; 82550; 82607; 82746; 83540; 84439; 84443; 85027; G0463

== ENCOUNTER → 2021-03-21 | Outpatient (REF) | payer MEDICARE | LOC: M SFHCCLAY 08:05 | PROVIDERS: ATTEND Family Medicine | DX: D64.9 Anemia, unspecified (principal) ==

== ENCOUNTER → 2021-08-14 | Outpatient (CLI) | payer MEDICARE ==
--- NOTE | 2021-08-14 14:18 | RADONC ---
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 He completed EBRT 70 Gy in 28 fractions 06/15/20. He continues ADT with Dr. Ellison. Diagnosis/Treatment History Oncologic History Followed for elevated PSA 01/17/20 TRUS biopsy Angie 5+4=9 8/12 cores+ overall PSA 10/13/19 16.4 01/05/20 19.2 03/12/20 3.65 (On ADT) 10/16/20 <0.01 12/19/20 <0.05 February [address] <0[address] scan and bone scan negative He received 70 Gy in 28 fractions from 05/07/20-06/15/[address] were treated Interval History Reports he had BRBPR in Fall, was copious, associated with constipation and hard BMs. He was evaluated by Dr. Smalls who referred him to GI. He saw Dr. Francis and by mutual agreement they decided not to intervene except with stool softener and fiber supplement. The bleeding has not recurred and he is having normal BMs daily. He has 2-3x nocturia and is interested in resuming flomax for this. He plans to go to [place] for the winter (Aug-December) he is due for next ADT injection in September and would like to establish with Urology there to fa cilitate this. Appetite and energy levels stable. Current Therapy ADT per Dr. Ellison from 03/2020 plan for ~ 2 years of treatment. 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 Allergies / Meds Allergies: Coded Allergies: Penicillins (Verified Allergy, Severe, Swelling, 11/16/19) Home Meds Active Scripts Tamsulosin HCl (Flomax) 0.4 Mg Capsule, 2 CAP PO QHS, #120 CAP 5 Refills Prov:JUNE RIVERS MD 08/14/21 Reported Medications Leuprolide Acetate (Lupron Depot) 45 Mg Syringekit, 45 MG IM [id number], INJ 12/19/20 Acetaminophen (Acetaminophen) 500 Mg Tablet, 1 TAB PO PRN PRN for PAIN, TAB 11/16/19 Nitroglycerin (Nitroglycerin) 0.4 Mg Tab.subl, 0.4 MG SL NITRO PRN for CHEST PAIN 11/16/19 Pravastatin Sodium (Pravastatin Sodium) 40 Mg Tab, 40 MG PO DAILY 03/15/18 Aspirin (Aspirin EC) 81 Mg Tab, 81 MG PO DAILY 03/15/18 Review of Systems Review of Systems Constitutional: Reports: Normal appetite; Denies: Fatigue, Weight Loss Pulmonary: Reports: Dyspnea (PICKARD mild, recent development); Denies: Cough Cardiovascular: Denies: Chest Pain Gastrointestinal: Denies: Abdominal Pain, Diarrhea, Constipation, Hematochezia Genitourinary: Reports: Frequency; Denies: Dysuria, Incontinence, Hematuria, Retention Musculoskeletal: Denies: Neck pain, Back pain Neurological: Denies: Weakness, Numbness Psych: Reports: Mood Normal Physical Examination Vital Signs Ht 67" Wt 234 BMI 38 T 96.6 P 67 RR 16 BP 136/73 O2 96% Pain 0 Fatigue 0 General Exam: Alert, Cooperative, No Acute Distress Eye Exam: PERRLA, EOMI ENT EXAM: Atraumatic Neck Exam: Supple Chest Exam: Clear to auscultation, Normal air movement; Negative: Wheezing Heart Exam: Rate Normal, Regular Rhythm Abdomen Exam: Soft; Negative: Tenderness Extremity Exam: Negative: Edema Skin Exam: Nl turgor and temperature, Rash Neuro Exam: Normal Gait, Normal Speech, Cranial Nerves 3-12 NL Psych Exam: Mental status NL Diagnostic and Laboratory Diagnostic Review Radiologic images, relevant labs and pathology reports were personally reviewed and discussed with Mr. Dee. Assessment and Plan Impression Assessment Mr. 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 He completed EBRT 70 Gy in 28 fractions 06/15/20. He continues ADT with Dr. Ellison. Some concern for radiation proctitis, s/p 2 episodes of BRBPR. Agree with decision not to intervene, bleeding has not recurred with institution of bowel regimen. Could have been hemorrhoids as well. Arash will monitor for recurrence. Given his persistent nocturia, I would like him to try flomax again, will prescribe the 2 tab nightly dose, as he is heading out of town, asked him to start at 1 tab nightly and if tolerating the medication without satisfactory results he can increase to 2 tabs. He would like to establish with a urologist in [facility] for when he colon down there and to receive his next ADT shot due 10/03/20. I will find a center down there and refer him. I can see him again in January 2022 when he returns [place]. Performance Status ECOG 0 Plan January 2022 with PSA/testosterone check Flomax Referral to [facility] Urologist for next ADT Continue bowel regimen to mitigate risk of further rectal bleeding Mr. Dee was encouraged to call with questions or concerns in the interim period. Billing Statement Total time of [36] minutes was spent preparing for the visit [2], obtaining HPI [9], examining the patient [2], reviewing diagnostic tests [3], discussing management options [9], coordinating care [4], and writing this note [7]. JUNE RIVERS MD Aug 14, 2021 14:18
== END ==
LOC: M ONCR 13:01
PROVIDERS: ATTEND General Practice
DX: C61 Malignant neoplasm of prostate (principal); Z92.3 Personal history of irradiation; Z88.0 Allergy status to penicillin; Z79.899 Other long term (current) drug therapy

== ENCOUNTER → 2022-01-07 | Outpatient (REF) | payer MEDICARE ==
[2022-01-07 16:12] LABS: BASO # 0.1 10^3/uL (0.0-0.2); BASO % 0.8 % (0.0-1.0); EOS # 0.3 10^3/uL (0.0-0.5); EOS % 4.2 % (0.0-3.0); HEMATOCRIT 37.2 % (42.0-52.0); HEMOGLOBIN 12.4 g/dl (13.5-17.5); LYMPH # 1.2 10^3/uL (1.5-5.0); LYMPH % 18.3 % (24.0-44.0); MEAN CORPUSCULAR HEMOGLOBIN 32.9 pg (27.0-33.0); MEAN CORPUSCULAR HGB CONC 33.3 g/dl (32.0-36.5); MEAN CORPUSCULAR VOLUME 98.7 fl (80.0-96.0); MONO # 0.6 10^3/uL (0.0-0.8); MONO % 8.4 % (2.0-8.0); NEUTROPHILS # 4.5 10^3/uL (1.5-8.5); NEUTROPHILS % 67.7 % (36.0-66.0); PLATELET COUNT, AUTOMATED 227 10^3/uL (150-450); RED BLOOD COUNT 3.77 10^6/uL (4.30-6.10); WHITE BLOOD COUNT 6.6 10^3/uL (4.0-10.0)
[2022-01-07 16:43] LABS: ALBUMIN 3.9 GM/DL (3.2-5.2); ALT/SGPT 23 U/L (12-78); BILIRUBIN,TOTAL 0.4 MG/DL (0.2-1.0); BLOOD UREA NITROGEN 31 MG/DL (7-18); CALCIUM LEVEL 9.4 MG/DL (8.8-10.2); CARBON DIOXIDE LEVEL 24 MEQ/L (21-32); CHLORIDE LEVEL 112 MEQ/L (98-107); CHOLESTEROL LEVEL 148 MG/DL (<200); CREATININE FOR GFR 1.47 MG/DL (0.70-1.30); GLOMERULAR FILTRATION RATE 48.1 (>35); GLUCOSE, FASTING 87 MG/DL (70-100); HDL CHOLESTEROL 55 MG/DL (>40); LDL CHOLESTEROL 70 MG/DL (<100); NON-HDL-C 93 MG/DL; POTASSIUM SERUM 4.7 MEQ/L (3.5-5.1); PROSTATIC SPECIFIC AG MONITOR < 0.01 NG/ML (< 4.00); SODIUM LEVEL 144 MEQ/L (136-145); TOTAL PROTEIN 6.5 GM/DL (6.4-8.2); TRIGLYCERIDES LEVEL 116 MG/DL (<150)
== END ==
LOC: M SFHCCLAY 11:26
PROVIDERS: ATTEND Family Medicine
DX: I25.10 Atherosclerotic heart disease of native coronary artery without angina pectoris (principal); I10 Essential (primary) hypertension; C61 Malignant neoplasm of prostate

== ENCOUNTER → 2022-01-28 | Outpatient (CLI) | payer MEDICARE | LOC: M ONCR 08:52 | PROVIDERS: ATTEND General Practice | DX: C61 Malignant neoplasm of prostate (principal); Z92.29 Personal history of other drug therapy; Z80.0 Family history of malignant neoplasm of digestive organs ==

== ENCOUNTER → 2022-07-10 | Outpatient (REF) | payer MEDICARE | LOC: M SFHCCLAY 11:53 | PROVIDERS: ATTEND Family Medicine | DX: C61 Malignant neoplasm of prostate (principal) ==

== ENCOUNTER → 2022-07-29 | Outpatient (CLI) | payer MEDICARE | LOC: M ONCR 09:13 | PROVIDERS: ATTEND Radiology Radiation Oncology | DX: C61 Malignant neoplasm of prostate (principal); M19.90 Unspecified osteoarthritis, unspecified site; Z79.818 Long term (current) use of other agents affecting estrogen receptors and estrogen levels; Z79.899 Other long term (current) drug therapy; Z88.0 Allergy status to penicillin; Z92.3 Personal history of irradiation ==

== ENCOUNTER → 2023-01-01 | Outpatient (CLI) | payer MEDICARE | LOC: M CLY 09:41 | PROVIDERS: ATTEND Nurse Practitioner Family | DX: R05.1 Acute cough (principal) ==

== ENCOUNTER → 2023-02-17 | Outpatient (REF) | payer MEDICARE ==
[2023-02-17 18:55] LABS: BASO # 0.1 10^3/uL (0.0-0.2); BASO % 0.7 % (0.0-1.0); EOS # 0.3 10^3/uL (0.0-0.5); EOS % 4.2 % (0.0-3.0); HEMATOCRIT 37.4 % (42.0-52.0); HEMOGLOBIN 12.4 g/dl (13.5-17.5); LYMPH # 1.5 10^3/uL (1.5-5.0); LYMPH % 21.2 % (24.0-44.0); MEAN CORPUSCULAR HEMOGLOBIN 32.4 pg (27.0-33.0); MEAN CORPUSCULAR HGB CONC 33.2 g/dl (32.0-36.5); MEAN CORPUSCULAR VOLUME 97.7 fl (80.0-96.0); MONO # 0.6 10^3/uL (0.0-0.8); MONO % 8.2 % (2.0-8.0); NEUTROPHILS # 4.6 10^3/uL (1.5-8.5); NEUTROPHILS % 65.1 % (36.0-66.0); PLATELET COUNT, AUTOMATED 233 10^3/uL (150-450); RED BLOOD COUNT 3.83 10^6/uL (4.30-6.10); WHITE BLOOD COUNT 7.1 10^3/uL (4.0-10.0)
[2023-02-17 18:58] LABS: ALBUMIN 3.8 G/DL (3.2-5.2); BILIRUBIN,TOTAL 0.3 MG/DL (0.3-1.2); CALCIUM LEVEL 9.2 MG/DL (8.3-10.6); CHOLESTEROL RISK RATIO 2.66 (<5); CREATININE FOR GFR 1.52 MG/DL (0.70-1.30); GLOMERULAR FILTRATION RATE 46.2 (>35); HDL CHOLESTEROL 46.2 MG/DL (>40); NON-HDL-C 76.8 MG/DL; POTASSIUM SERUM 5.1 MMOL/L (3.5-5.1); PROSTATIC SPECIFIC AG MONITOR 0.04 NG/ML (< 4.00); TOTAL PROTEIN 6.1 G/DL (5.7-8.2)
== END ==
LOC: M SFHCCLAY 13:50
PROVIDERS: ATTEND Family Medicine
DX: I10 Essential (primary) hypertension (principal); I25.10 Atherosclerotic heart disease of native coronary artery without angina pectoris; C61 Malignant neoplasm of prostate

== ENCOUNTER → 2023-03-17 | Outpatient (REF) | payer MEDICARE ==
[2023-03-17 18:23] LABS: CREATININE FOR GFR 1.5 MG/DL (0.70-1.30); GLOMERULAR FILTRATION RATE 46.9 (>35); POTASSIUM SERUM 4.7 MMOL/L (3.5-5.1)
== END ==
LOC: M SFHCCLAY 09:40
PROVIDERS: ATTEND Family Medicine
DX: I10 Essential (primary) hypertension (principal)

== ENCOUNTER → 2023-07-10 | Outpatient (CLI) | payer MEDICARE | LOC: M CLY 10:23 | PROVIDERS: ATTEND Physician Assistant | DX: M41.86 Other forms of scoliosis, lumbar region (principal); M51.36 Other intervertebral disc degeneration, lumbar region; M16.11 Unilateral primary osteoarthritis, right hip ==